=== PATIENT | female | born 1975 | race Caucasian/White ===

== ENCOUNTER 2019-11-19 07:34 | Day surgery (SDC) | payer OTHER, SELFPAY ==
[2019-11-15 15:13] LABS: Hematocrit 44.3 % (37-47); Hemoglobin 14.8 g/dL (12.0-15.0); Mean Corp Hgb Conc 33.4 g/dL (32-36); Mean Corpuscular Hgb 30.8 pg (27.0-32.0); Mean Corpuscular Volume 92.3 fL (81-99); Mean Platelet Vol. 9.6 fl (6.2-12.0); Platelet Count 182 K/mm3 (150-450); RBC Distribution Width CV 12.6 % (11.6-14.6); RBC Distribution Width SD 42.1 fl (35.1-43.9); White Blood Count 10.2 K/mm3 (4.4-11.0)
[2019-11-19] VITALS (9 sets, daily range): BP systolic 103–118; BP diastolic 52–83; PULSE 51–74; RESP 16–18; TEMP 36.1–36.9; O2SAT 93–98; BMI 33.5
--- NOTE | 2019-11-19 | IMM_PTH ---
PATIENT: MARK SUN LOC: [facility] [place] U#:[id number] AGE/SX: 44/F ROOM: RE11/19/[address]: Dr. Jose Luis Hernandez MD : 1975 BED: DIS: 11/19/2019 SPEC #: [id number] RECD: 11/20/19 11:25 STATUS: SEAN REMelany #: [id number] JAMES: 11/19/19 00:[address]: Jose Luis Hernandez DEPT: IMMUNOHISTOCHEMISTRY RECD BY: Swetha Gar ENTERED: 11/20/19 11:27 SP TYPE: IMMUNO OTHR DR: No Primary Care Phys Tissues: Tonsil, NOS Procedures: BCL-2 (add) BCL-6 (add) CD10 (add) CD138 (add) CD15 (add) CD20 (add) CD23 (add) CD3 (add) CD30 (add) CD45 (add) CD5 (add) CD79A (add) CYCLIN (add) KAPPA (add) LAMBDA (add) MUM1 (add) Pankeratin (initial) PHYSICIAN & [address] [address] SPECIMEN INFORMATION: Tissue Source: Left tonsil, tonsillectomy Clinical Info: Hypertrophy of left tonsil Specimen Number: [id number] #3 CPT code: 27274, 46272 x16 METHODOLOGY: Deparaffinized sections of prefer/formalin-fixed tissue or PAP/DQ stained slides are incubated with monoclonal/polyclonal antibodies/oligonucleotide probes. Localization is made via biotin free immunoperoxidase method. Appropriate controls are performed and reacted as expected. Results on target cell population are indicated in the following table: RESULTS: ANTIBODY / CLONE RESULT Block 3 AE1-3 (AE1/AE3/PCK26) negative CD3 (PS1) positive CD5 (SP10) positive CD10 (56C6) negative CD15 (MMA) negative CD20 (L26) positive CD23 (1B12) negative CD30 (Adam-H2) negative CD45 (RP2/18) positive CD79a (11E3) positive CD138 (B-A38) negative BCL-2 (bcl-2/100/D5) negative BCL-6 (QB902B/A8) negative Cyclin D1/BCL-1 (SP4) negative MUM1 (MRQ-43) negative [place] (polyclonal) negative Lambda (polyclonal) negative These tests were developed and their performance characteristics determined by [facility]. They may not have been cleared or approved by the [place]. Food and Drug Administration. The FDA has determined that such clearance or approval is not necessary. The above immunohistochemical/dualISH markers are ordered and reviewed by the Pathologist. INTERPRETATION: Left tonsil, tonsillectomy: Consistent with benign tonsil. AM:adriana 11/21/19 Case has been reviewed in consultation with Dr. Larios who concurs with the above diagnosis. IDC:JOY
--- NOTE | 2019-11-19 | TONS_PTH ---
PATIENT: MARK SUN LOC: [facility] [place] U#:[id number] AGE/SX: 44/F ROOM: RE11/19/[address]: Dr. Jose Luis Hernandez MD : 1975 BED: DIS: 11/19/2019 SPEC #: [id number] RECD: 11/19/19 10:40 STATUS: SEAN SAVANNA #: [id number] JAMES: 11/19/19 00:[address]: Jose Luis Hernandez DEPT: SURGICAL PATHOLOGY RECD BY: Swetha Gar ENTERED: 11/19/19 11:31 SP TYPE: TONSILS OTHR DR: No Primary Care Phys Tissues: A - Tonsil, NOS Procedures: Frozen Section (charge) Surgery Specimen Level III HEADER OPERATION: Tonsillectomy PRE-OP DIAGNOSIS: Hypertrophy of left tonsil TISSUE SUBMITTED: Left tonsil FROZEN SECTION DIAGNOSIS Left tonsil, tonsillectomy: Benign polypoid lymphoid tissue. No evidence of malignancy. AM:adriana 11/19/19 Case has been reviewed in consultation with Dr. Larios who concurs with the above diagnosis. IDC:SJ MICROSCOPIC DIAGNOSIS Left tonsil, tonsillectomy: Benign lymphoid tissue. See comment. AM:adriana 11/22/19 COMMENT Immunohistochemistry ([id number]) supports the above diagnosis. Case has been reviewed in consultation with Dr. Larios who concurs with the above diagnosis. IDC:SJ MICROSCOPIC DESCRIPTION Slides are reviewed. GROSS DESCRIPTION Received fresh for frozen section consultation labeled with the patient's name is a specimen designated left tonsil. The specimen consists of a tonsil measuring 2.7 x 2.5 x 1 cm and weighing 3.2 gm. The tonsil contains a polypoid area measuring 1.5 cm in greatest dimension. A sales representative publications section of the polypoid area is submitted for frozen section consultation (block 1). Veneer Taping Machine Offbearer touch preps of the tonsil are prepared (Diff-Quik x2). The remainder of the specimen is submitted in its entirety in two cassettes, 2 & 3. / AM:adriana 11/19/19 TC:5 CPT: 61201, 54532
--- NOTE | 2019-11-19 07:47 | EKG12_ITS ---
Test Reason : PREOP Blood Pressure : / mmHG Vent. Rate : 069 BPM Atrial Rate : 069 BPM P-R Int : 174 ms QRS Dur : 074 ms QT Int : 400 ms P-R-T Axes : 051 -12 034 degrees QTc Int : 428 ms Normal sinus rhythm Low voltage QRS Septal infarct , age undetermined Abnormal ECG No previous ECGs available Confirmed by MAXIMILIANO DÍAZ, DOLLY ([id number]), graphic editor DILAN BOWDEN ([id number]) on 11/20/2019 4:02:43 PM Referred By: Jose Luis Hernandez Confirmed By:DOLLY VIERA MD
[2019-11-19] MEDS: Lactated Ringers 1,000 ML 100 ML IV ×2 (08:10→10:37)
--- NOTE | 2019-11-19 09:45 | DCINST_ITS ---
Discharge Diet: Soft diet Additional Activity Instructions:: soft diet x 2 weeks Allergies/Adverse Reactions: Allergies No Known Allergies Allergy (Verified 11/19/19 07:50) Medications to take at Discharge NK 11/16/19 Primary Care Physician: Care Physician,No Primary [Primary Care Provider] - Test Results: Test results from this visit will be discussed in further detail at your follow- up appointment, if applicable.
[2019-11-19] MEDS: Bupivacaine Mpf 0.5% 30 ML VIAL (10:10)
--- NOTE | 2019-11-19 10:21 | PCM.OPRPT ---
Report of Operation Date of Procedure: 11/19/19 Pre-Operative Diagnosis: left tonsillar hypertrophy Post-Operative Diagnosis: same Surgery/Procedure Performed:: left tonsillectomy Description of Surgical Findings:: 4+ left tonsil Type of Anesthesia:: General Anesthesiologist: Anand Rodriguez Specimen's removed: left tonsil Estimated Blood Loss (mL): minimal Description of Procedure: The patient was taken to the OR on 11/19/19. The patient was placed in the supine position on the OR table. The patient was given sufficient general endotracheal anesthesia. The table was turned 90 degrees clockwise. A Eric mouthgag was inserted into the patient's mouth. The patient was suspended on a Chew stand. The left tonsil was grasped with an Allis clamp and removed using a bovie cautery. Absolute hemostasis was achieved using suction cautery. .5% marcaine was placed on an adenoid sponge and placed in the left tonsillar fossa for one minute and then removed. The gag was closed. It was re opened to inspect for bleeding and there was none. The gag was then removed. The patient was then awoken and brought to the recovery room in stable condition. Blood loss minimal, replacement none. Sponge, needle and instrument count were correct at the end of the procedure.
[2019-11-19] MEDS: HYDROcodone Bitartrate/Apap 5/325 Tablet PO (12:02)
== END 2019-11-19 13:11 | disposition home or self-care (01) ==
LOC: SDC 07:34 → AC 07:35
PROVIDERS: Referring Provider Otolaryngology; Visit Provider Otolaryngology
PROC: (CPT 42826; principal; 2019-11-19 09:40)
DX: J35.1 Hypertrophy of tonsils (principal); K21.9 Gastro-esophageal reflux disease without esophagitis; F17.200 Nicotine dependence, unspecified, uncomplicated; Z11.59 Encounter for screening for other viral diseases
CPT/HCPCS: 00170; 42826; 36415; 85027; 87635; 88304; 88331; 88341; 88342; 93005; G2023; J7120; J2405; U0002